=== PATIENT | female | born 1980 | race Caucasian/White ===

== ENCOUNTER → 2019-08-17 11:10 | Outpatient (BNVA) | payer BC, SELFPAY | PROVIDERS: Family Provider Nurse Practitioner Family; PCP Nurse Practitioner Family; Referring Provider Nurse Practitioner Family; Visit Provider Obstetrics & Gynecology | DX: Z31.69 Encounter for other general counseling and advice on procreation (principal) | CPT/HCPCS: 83036; 84144; 84443; 85520 ==

== ENCOUNTER 2019-08-25 09:25 | Outpatient (CLI) | payer BC, SELFPAY ==
--- NOTE | 2019-08-25 09:33 | FL_ITS ---
WS: [id number] HYSTEROGRAM PERFORMED UNDER FLUOROSCOPY HISTORY: Evaluate fallopian tubes. Patency. Infertility. FLUOROSCOPY TIME: 0.1 minutes. Cannulization of the cervix performed by Dr. Louise. Early during the injection the fallopian tubes a re patent. Spillage of contrast into the peritoneal cavity. No hydrosalpinx. Normally distended endom etrium with no filling defects. FL/FL hysterosalpingography [id number] IMPRESSION: Patent bilateral fallopian tubes.
[2019-08-25] MEDS: iohexol 300 mg/mL 50 mL Btl VAGINAL (10:26)
--- NOTE | 2019-08-25 10:45 | PM.ACPR ---
Procedure/Consent Procedure Narrative: Radiologic procedure Date of procedure: 08/25/2019 Date of dictation: 08/25/2019 Procedural diagnosis: Assess patency of fallopian tubes for infertility Procedure done: Placement of hysterosalpingogram catheter Physician: Dr. Deb Louise Anesthesia: None Indication: To assess patency of fallopian tubes Complications: None, patient tolerated the procedure well PROCEDURE: The procedure was explained to the patient and verbal consent provided. Sterile speculum was placed in the vagina and the cervix was prepped with Betadine. The cervix was grasped with a single-tooth tenaculum. Using Omnipaque dye, the HSG catheter was primed. The catheter was inserted into the cervix and the speculum was removed. Fluoroscopy was performed by the radiologist. Omnipaque dye was injected into the endometrial cavity with normal filling of the cavity. Normal caliber thin tubes were noted with immediate spillage of dye bilaterally. The tenaculum and catheter were removed. Patient tolerated the procedure well. Please see separate radiologist report for final interpretation. Followup appointment: She is to followup at her next scheduled appointment
== END 2019-08-25 09:26 | disposition home or self-care (01) ==
LOC: RAD 09:29
PROVIDERS: PCP Nurse Practitioner Family; Visit Provider Obstetrics & Gynecology
DX: Z31.69 Encounter for other general counseling and advice on procreation (principal)
CPT/HCPCS: 12345; 74740

== ENCOUNTER 2019-09-19 08:00 | Outpatient (CLI) | payer BC, SELFPAY | END 2019-09-19 09:00 | disposition home or self-care (01) | LOC: LAB 12-02 12:06 | PROVIDERS: PCP Nurse Practitioner Family; Visit Provider Obstetrics & Gynecology | DX: Z12.4 Encounter for screening for malignant neoplasm of cervix (principal); Z31.69 Encounter for other general counseling and advice on procreation | CPT/HCPCS: 83036; 85520; 88175 ==

== ENCOUNTER 2022-05-22 08:01 | Outpatient (CLI) | payer BC, SELFPAY ==
--- NOTE | 2022-05-22 08:11 | MM_ITS ---
WS: [id number] BILATERAL SCREENING DIGITAL TOMOSYNTHESIS MAMMOGRAM WITH CAD HISTORY: SCREENING COMPARISON: None available. Bilateral CC and MLO views with tomosynthesis and synthetic mammography submitted. Computer aided det ection analyzed. Breast composition: There are scattered areas of fibroglandular density. No suspicious masses, microc alcifications or architectural distortion. Benign calcifications in each breast. MM/[place] [id number] IMPRESSION: BI-RADS: 2-Benign FOLLOW UP: 1 Year Follow-up
== END 2022-05-22 08:02 | disposition home or self-care (01) ==
LOC: RAD 08:05
PROVIDERS: PCP Nurse Practitioner Family; Visit Provider Nurse Practitioner Family
DX: Z12.31 Encounter for screening mammogram for malignant neoplasm of breast (principal)
CPT/HCPCS: 77063; 77067

== ENCOUNTER 2022-08-05 20:25 | Emergency (ER) | payer BC, SELFPAY ==
[2022-08-05 20:30] VITALS: BP 108/74; PULSE 74; RESP 16; TEMP 36.4; O2SAT 100
--- NOTE | 2022-08-05 20:36 | W.ED.ALLEREA ---
HPI - Allergic Reaction General: Chief complaint: Allergic Reaction Stated complaint: allergic reaction/ rash around left eye Time Seen by Provider: 08/05/22 20:35 History of Present Illness: HPI narrative: 42-year-old female comes in today with rash from probable poison may to the face neck and forearms. Patient reports rash started yesterday but has worsened spreading onto her face causing some swelling to the face. Patient has had problems with significant swelling to the face. Patient appears nontoxic. Patient appears in no pain. Patient denies asthma. Associated symptoms: Deny vomiting Review of Systems Const: Denies: fever(s) Resp: Denies: dyspnea GI: Denies: vomiting Skin/Breast: Denies: rash PFSH ED PFSH: Medical History (Updated 08/05/22 @ 20:43 by BENITA Peace) No pertinent past medical history Denies: Hypertension, hypercholesterolemia, diabetes, heart, liver, lung, kidney or thyroid disorders, bleeding/clotting disorders, DVT/PE. PCP: BENITA Morales Surgical History H/O foot surgery 2003. 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 Physical Exam Const: COMMON NORMALS: alert HENMT: COMMON NORMALS: normocephalic HEAD & SCALP: normocephalic Neck/C-Spine: COMMON NORMALS: full ROM Resp: COMMON NORMALS: normal respiratory effort and clear to auscultation bilaterally AUSCULTATION: clear to auscultation bilaterally Cardio: COMMON NORMALS: regular rate and regular rhythm RATE: regular rate RHYTHM: regular rhythm Extremity: COMMON NORMALS: normal to inspection Neuro: SENSORIUM/ORIENTATION: Yes alert Skin: RASHES: rashes noted (Red rash to the face, anterior neck, and forearms) Course Vital Signs: Vital signs: Vital Signs Temperature 97.5 F L 08/05/22 20:30 Pulse Rate 74 08/05/22 20:30 Respiratory Rate 16 08/05/22 20:30 Blood Pressure 108/74 08/05/22 20:30 Pulse Oximetry 100 08/05/22 20:30 Oxygen Delivery Me thod Room Air 08/05/22 20:30 MDM - Allergic Reaction Medical Decision Making 42-year-old female comes in today with rash to the face, neck, and forearms for 2 days now. On exam patient appears nontoxic. Patient moves extremities well. Respirations are even. Vital signs are normal. Differential diagnosis includes but not limited to contact dermatitis, allergic reaction, eczema. Reviewed exam with patient with recommendations for treatment for contact dermatitis due to plant. Patient reports understanding of care plan and need for follow-up or return to the ER. I did update patient's epinephrine pen as she has had a history of anaphylaxis in the past and hers was out of date at this time. Patient was placed on steroids 20 mg of prednisone daily for the next 10 days. Patient was given 1 dose of Kenalog 40 mg in the emergency department today. Discharge Plan Discharge Patient Disposition: Home Clinical Impression: Poison may dermatitis, History of anaphylaxis Condition: Stable Prescriptions: New prednisone 20 mg tablet 20 mg PO DAILY 10 Days Qty: 10 0RF epinephrine 0.3 mg/0.3 mL syringe 0.3 mg IM Q15M PRN (Reason: anaphylaxis) Qty: 2 0RF Rx Instructions: for 2 doses No Action prenat.vits,candelaria,[id number] Tablet 1 tab PO DAILY Discharge Orders: Discharge ED (Routine); Ordered 08/05/22 Ordered By: Sergey Alves Referrals: Kerri Benitez APN [Primary Care Provider] - Discharge Diet: Usual diet Discharge Activity: Increase activity as tolerated Patient Instructions: Poison May (ED) Activity Restrictions/Additional Instructions: Healthy diet and activity. After exposure you should shower in lukewarm water rinsing thoroughly prior to washing with soap. Drink plenty of water. Take steroid daily for the next 10 days. Steroid will help prevent increased swelling of the face, but will not stop the rash and it will still need to run its course over 14 days. Use Benadryl, Claritin, Zyrtec, and calamine lotion for discomfort. Follow-up with primary care for further instruction. Return to ED for new concerns. 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
[2022-08-05] MEDS: triamcinolone 40 mg/mL SDV IM (21:01)
== END 2022-08-05 21:07 | disposition home or self-care (01) ==
PROVIDERS: Emergency Provider Nurse Practitioner Family; PCP Nurse Practitioner Family
DX: L23.7 Allergic contact dermatitis due to plants, except food (principal); Z87.892 Personal history of anaphylaxis
CPT/HCPCS: 96372; 99284; J3301

== ENCOUNTER 2023-07-23 15:03 | Outpatient (CLI) | payer BC, SELFPAY ==
--- NOTE | 2023-07-23 15:15 | MM_ITS ---
WS: [id number] BILATERAL SCREENING DIGITAL TOMOSYNTHESIS MAMMOGRAM WITH CAD HISTORY: SCREENING COMPARISON: 05/22/2022 Bilateral CC and MLO views with tomosynthesis and synthetic mammography submitted. Computer aided det ection analyzed. Breast composition: There are scattered areas of fibroglandular density. No suspicious masses, microc alcifications or architectural distortion. Benign calcifications in each breast. IMPRESSION: MM/[place] [id number] BI-RADS: 2-Benign FOLLOW UP: 1 Year Follow-up
== END 2023-07-23 15:04 | disposition home or self-care (01) ==
LOC: MOBLMAM 15:15
PROVIDERS: PCP Nurse Practitioner Family; Visit Provider Nurse Practitioner Family
DX: Z12.31 Encounter for screening mammogram for malignant neoplasm of breast (principal); R92.323 Mammographic fibroglandular density, bilateral breasts
CPT/HCPCS: 77063; 77067

== ENCOUNTER 2024-07-27 10:21 | Outpatient (CLI) | payer BC, SELFPAY ==
--- NOTE | 2024-07-27 10:20 | MM_ITS ---
WS: [id number] BILATERAL 3D TOMOSYNTHESIS DIGITAL SCREENING MAMMOGRAPHY WITH CAD CLINICAL INFORMATION: SCREENING HISTORY: Screening mammogram. No current complaints. COMPARISON: 2023 TECHNIQUE: Bilateral CC and MLO views. FINDINGS: Scattered fibroglandular densities bilaterally. Punctate and lucent centered calcifications. Increasing asymmetric density inferior LEFT breast best seen on the MLO view. This is in the lower outer quadrant. Recommend further evaluation with LEFT breast diagnostic mammography and ultrasound. Unremarkable RIGHT breast. MM/MM [facility] tomosynthesis [id number] IMPRESSION: DENSITY: There are scattered areas of fibroglandular density. BI-RADS: 0 - Incomplete: Need additional imaging evaluation. FOLLOW UP: Need Additional Imaging Recommend further evaluation with LEFT breast diagnostic mammography and ultras ound.
== END 2024-07-27 10:22 | disposition home or self-care (01) ==
LOC: MOBLMAM 10:24
PROVIDERS: PCP Nurse Practitioner Family; Visit Provider Nurse Practitioner Family
DX: Z12.31 Encounter for screening mammogram for malignant neoplasm of breast (principal); R92.323 Mammographic fibroglandular density, bilateral breasts; R92.1 Mammographic calcification found on diagnostic imaging of breast; N63.23 Unspecified lump in the left breast, lower outer quadrant
CPT/HCPCS: 77063; 77067

== ENCOUNTER 2024-09-05 13:34 | Outpatient (CLI) | payer BC, SELFPAY ==
--- NOTE | 2024-09-05 13:37 | MM_ITS ---
WS: [id number] LEFT 3D TOMOSYNTHESIS DIGITAL MAMMOGRAPHY WITH CAD CLINICAL INFORMATION: ABNORMAL SCREENING MAMMOGRAM HISTORY: Additional views COMPARISON: 07/27/2024 TECHNIQUE: 3 views of the left breast were obtained. FINDINGS: Scattered fibroglandular densities of the left breast. Punctate and lucent centered calcifications LEFT breast. Previously described asymmetric density inferior LEFT breast persist on the spot compression views today. Ultrasound described below. ULTRASOUND BREAST LEFT TECHNIQUE: Ultrasound LEFT breast focused area of concern. CLINICAL INFORMATION: ABNORMAL SCREENING MAMMOGRAM FINDINGS: Ultrasound LEFT breast 3 to 6 o'clock position. Normal underlying parenchymal tissue. No cystic or solid lesions. No suspicious lesions to target for biopsy. Recommend return to annual screening mammography. MM/MM diag [facility] tomosynthesis [id number] IMPRESSION: DENSITY: There are scattered areas of fibroglandular density. BI-RADS: 2 - Benign. FOLLOW UP: 1 Year Follow-up Recommend return to annual screening mammography.
== END 2024-09-05 13:35 | disposition home or self-care (01) ==
PROVIDERS: PCP Nurse Practitioner Family; Visit Provider Nurse Practitioner Family
DX: R92.8 Other abnormal and inconclusive findings on diagnostic imaging of breast (principal)
CPT/HCPCS: 76642; 77061; G0279